=== PATIENT | male | born 1940 | race Asian ===

== ENCOUNTER → 2017-02-19 | Outpatient (CLI) | payer MEDICARE, BC ==
[2005-05-01 10:11] VITALS: TEMP 98.7
[~2017-02-19] MED LIST: ADALAT; ANUSOL HC CREAM30 GM TP; FLEXERIL5 MG PO; FLOMAX; NO HOME MEDICATIONS; PERCOCET 5/321 UDTAB PO
== END ==
LOC: MC.RAD 12:58
DX: N63 Unspecified lump in breast (principal); N60.02 Solitary cyst of left breast

== ENCOUNTER 2017-03-30 11:06 | Emergency (ER) | payer MEDICARE, BC ==
[~2017-03-30] VITALS: Ht 177.8 cm; Wt 75.0 kg
[~2017-03-30 11:06] MED LIST changes: -ANUSOL HC CREAM30 GM TP
[2017-03-30 11:10] VITALS: TEMP 98.9
[2017-03-30] MEDS ORDERED: ANUSOL HC CREAM30 GM TP (11:41)
[2017-03-30 11:50] VITALS: BP 146/78; PULSE 85
== END 2017-03-30 11:57 | disposition home or self-care (01) ==
LOC: COL.ER 11:06
DX: K59.00 Constipation, unspecified (principal); K64.4 Residual hemorrhoidal skin tags

== ENCOUNTER 2021-01-15 19:17 | Emergency (ER) | payer MEDICARE, BC ==
[~2021-01-15] VITALS: Ht 177.8 cm; Wt 79.5 kg
[~2021-01-15 19:17] MED LIST changes: +ANUSOL HC CREAM30 GM TP
[2021-01-15 19:19] VITALS: TEMP 98.9
[2021-01-15 19:31] LABS: HEMATOCRIT 40.2 % (42.0-52.0); HEMOGLOBIN 12.7 g/dl (13.5-18.0); MEAN CELL VOLUME 87 fl (80.0-100.0); MEAN CORPUSCULAR HEMOGLOBIN 28 pg (27.0-31.0); MEAN CORPUSCULAR HGB CONC 32 g/dl (33.0-37.0); MEAN PLATELET VOLUME 9.3 fl (7.4-10.4); PLATELET COUNT 159 K/mm3 (130-400); RED BLOOD COUNT 4.61 M/mm3 (4.20-5.60); REDCELL DISTRIBUTION WIDTH-CV 13.4 % (11.5-14.5)
[2021-01-15 19:42] LABS: ALANINE AMINOTRANSFERASE 16 U/L (4-49); ALBUMIN 4.4 gm/dL (3.5-5.0); ALKALINE PHOSPHATASE 64 U/L (50-136); ANION GAP 10 mmol/L (7-16); AST,SGOT 31 U/L (15-37); BILIRUBIN,TOTAL 0.6 mg/dL (0.0-1.0); BLOOD UREA NITROGEN 24 mg/dL (9-20); CALCIUM 8.5 mg/dL (8.4-10.2); CARBON DIOXIDE 24 mmol/L (22-30); CHLORIDE 104 mmol/L (98-107); CREATININE, serum 1.01 (0.66-1.25); GLUCOSE 109 mg/dL (74-106); POTASSIUM 3.6 mmol/L (3.4-5.0); SODIUM 138 mmol/L (137-145)
[2021-01-15 19:52] LABS: COLLECTION METHOD CLEAN CATCH
[2021-01-15 19:54] LABS: TROPONIN-I < 0.012 ng/mL (0.000-0.035)
[2021-01-15 20:01] LABS: PH 6 (5-8); SQUAMOUS EPITHELIAL 0-2 /hpf; URINE APPEARANCE Clear; URINE BACTERIA None Seen /hpf; URINE BILIRUBIN Negative (NEGATIVE); URINE BLOOD Negative (NEGATIVE); URINE COLOR Yellow; URINE GLUCOSE Negative (NEGATIVE); URINE KETONE Negative (NEGATIVE); URINE LEUKOCYTE ESTERASE Negative (NEGATIVE); URINE NITRATE Negative (NEGATIVE); URINE PROTEIN(semi-quant) Negative (NEGATIVE); URINE RBC 0-2 /hpf; URINE UROBILINOGEN Negative (NEGATIVE)
[2021-01-15 20:59] LABS: LYMPHOCYTE 50 % (20.0-51.0); NEUTROPHILS 48 % (42.0-75.2)
[2021-01-15 21:57] VITALS: BP 120/68; PULSE 88
== END 2021-01-15 22:00 | disposition short-term general hospital (02) ==
LOC: COL.ER 19:17
PROVIDERS: Emergency Medicine
DX: S06.5X0A Traumatic subdural hemorrhage without loss of consciousness, initial encounter (principal); N40.0 Benign prostatic hyperplasia without lower urinary tract symptoms; I10 Essential (primary) hypertension; Z20.822 Contact with and (suspected) exposure to COVID-19; Z88.0 Allergy status to penicillin; W01.10XA Fall on same level from slipping, tripping and stumbling with subsequent striking against unspecified object, initial encounter; Y92.000 Kitchen of unspecified non-institutional (private) residence as the place of occurrence of the external cause
CPT/HCPCS: J1953; J7050

== ENCOUNTER 2021-05-02 08:02 | Emergency (ER) | payer MEDICARE, BC ==
[~2021-05-02] VITALS: Ht 175.3 cm; Wt 70.5 kg
[2021-05-02] MEDS ORDERED: ZEBETA 5MG5 MG PO (09:28)
[2021-05-02] MEDS ORDERED: TAMOXIFEN CITRA20 MG PO (09:29)
[2021-05-02 10:48] LABS: HEMOGLOBIN 12.3 g/dl (13.5-18.0); MEAN CELL VOLUME 85 fl (80.0-100.0); MEAN CORPUSCULAR HEMOGLOBIN 28 pg (27.0-31.0); MEAN CORPUSCULAR HGB CONC 33 g/dl (33.0-37.0); MEAN PLATELET VOLUME 8.3 fl (7.4-10.4); PLATELET COUNT 171 K/mm3 (130-400); RED BLOOD COUNT 4.34 M/mm3 (4.20-5.60); REDCELL DISTRIBUTION WIDTH-CV 13.5 % (11.5-14.5)
[2021-05-02 11:01] LABS: ALBUMIN 4.4 gm/dL (3.5-5.0); BILIRUBIN,TOTAL 0.9 mg/dL (0.0-1.0); CALCIUM 8.6 mg/dL (8.4-10.2); CREATININE, serum 0.88 (0.66-1.25); POTASSIUM 4.4 mmol/L (3.4-5.0); TOTAL PROTEIN 6.8 gm/dL (6.4-8.2)
[2021-05-02 11:02] LABS: C-REACTIVE PROTEIN 0.5 mg/dL (0.0-0.9)
[2021-05-02 11:44] LABS: BAND 11 % (0-10); LYMPHOCYTE 30 % (20.0-51.0); NEUTROPHILS 54 % (42.0-75.2); OVALOCYTES 1+; PLATELET ESTIMATE NORMAL (NORMAL)
[2021-05-02 12:00] VITALS: BP 172/85; PULSE 80; TEMP 98
[2021-05-02] MEDS ORDERED: ATARAX 25MG25 MG/TAB PO (12:04)
== END 2021-05-02 12:20 | disposition home or self-care (01) ==
LOC: COL.ER 08:02
PROVIDERS: Family Medicine
DX: E87.1 Hypo-osmolality and hyponatremia (principal); L29.9 Pruritus, unspecified
CPT/HCPCS: J7030

== ENCOUNTER 2021-06-29 08:08 | Outpatient (CLI) | payer MEDICARE, BC ==
[~2021-06-29] VITALS: Ht 175.3 cm; Wt 71.4 kg
[~2021-06-29 08:08] MED LIST changes: +ATARAX 25MG25 MG/TAB PO; +TAMOXIFEN CITRA20 MG PO; +ZEBETA 5MG5 MG PO
[2021-06-29] MEDS ORDERED: ASPIRIN 81M81 MG/TA2 PO (09:02)
[2021-06-29] MEDS ORDERED: FLORINEF ACETA0.1 MG PO (09:02)
[2021-06-29 09:05] VITALS: BP 179/82; PULSE 73; TEMP 98.2
[2021-06-29 09:05] LABS: HEMATOCRIT 37.9 % (42.0-52.0); HEMOGLOBIN 12.3 g/dl (13.5-18.0); MEAN CELL VOLUME 87 fl (80.0-100.0); MEAN CORPUSCULAR HEMOGLOBIN 28 pg (27.0-31.0); MEAN CORPUSCULAR HGB CONC 33 g/dl (33.0-37.0); MEAN PLATELET VOLUME 8.8 fl (7.4-10.4); PLATELET COUNT 154 K/mm3 (130-400); RED BLOOD COUNT 4.35 M/mm3 (4.20-5.60); REDCELL DISTRIBUTION WIDTH-CV 12.8 % (11.5-14.5)
[2021-06-29 09:12] LABS: INR 1.1 (0.8-3.0); PROTHROMBIN TIME 12.1 SECONDS (9.7-12.8)
[2021-06-29 09:36] LABS: CALCIUM 9.1 mg/dL (8.4-10.2); CREATININE, serum 1.01 mg/dL (0.72-1.25); POTASSIUM 4.1 mmol/L (3.5-4.5)
[2021-06-29 11:26] VITALS: BP 106/25; PULSE 70; TEMP 98.2
[2021-06-29 11:41] VITALS: BP 111/69; PULSE 66; TEMP 98.2
[2021-06-29 11:56] VITALS: BP 119/81; PULSE 67; TEMP 98.2
[2021-06-29 12:11] VITALS: BP 119/79; PULSE 72; TEMP 98.1
[2021-06-29 12:41] VITALS: BP 120/84; PULSE 74; TEMP 98.3
--- NOTE | 2021-06-29 14:50 | NUR ---
PT understands education and verifies follow up appointment. PT has zero complaints and his able to stand and walk to wheel chair without incident. PT is wheeled to 's car and gets in the front seat without incident. PT discharged [id number]
== END 2021-06-29 12:55 | disposition home or self-care (01) ==
LOC: COL.RAD 08:08
PROVIDERS: Internal Medicine Cardiovascular Disease
DX: I35.1 Nonrheumatic aortic (valve) insufficiency (principal); Z20.822 Contact with and (suspected) exposure to COVID-19
CPT/HCPCS: J2704; J7120

== ENCOUNTER 2021-07-11 11:20 | Day surgery (SDC) | payer MEDICARE, BC ==
[2021-07-11] VITALS (10 sets, daily range): BP systolic 128–172; BP diastolic 66–88; PULSE 78–92; TEMP 97.3–98.1
[~2021-07-11] VITALS: Ht 177.8 cm; Wt 72.2 kg
[~2021-07-11 11:20] MED LIST changes: +ASPIRIN 81M81 MG/TA2 PO; +FLORINEF ACETA0.1 MG PO
--- NOTE | 2021-07-12 00:01 | NUR ---
ALERT AND OX4. DENIES SOA, CHEST PAIN OR DIZZY. CBI RUNNING MED, URINE CLEAR WITHOUT CLOTS. PT STATES MILD DISCOMFORT IN BLADDER AREA. TYL AND PM MEDS GIVEN. POC DISCUSSED. CALL LIGHT WITH IN REACH.
[2021-07-12 03:43] VITALS: BP 120/65; PULSE 83; TEMP 98.5
[2021-07-12 07:31] VITALS: BP 163/75; PULSE 92; TEMP 98.3
[2021-07-12 07:49] LABS: HEMATOCRIT 37.1 % (42.0-52.0); HEMOGLOBIN 11.8 g/dl (13.5-18.0); MEAN CELL VOLUME 87 fl (80.0-100.0); MEAN CORPUSCULAR HEMOGLOBIN 28 pg (27.0-31.0); MEAN CORPUSCULAR HGB CONC 32 g/dl (33.0-37.0); PLATELET COUNT 173 K/mm3 (130-400); RED BLOOD COUNT 4.26 M/mm3 (4.20-5.60)
[2021-07-12 08:01] LABS: CALCIUM 8.7 mg/dL (8.4-10.2); CREATININE, serum 0.92 mg/dL (0.72-1.25)
--- NOTE | 2021-07-12 10:00 | NUR ---
Patient alert and oriented, answers questions appropriately. See assessment. Tillman catheter in place, draining clear corral urine. CBI running at slow rate. Patient and with high anxiety, very concerned with rate CBI infusing and color of urine. Educated on CBI and what is expected. Patient or continuously touching and pulling on tillman catheter. Tillman catheter has [place] knot, patient request it to be removed, educated patient on need for [place] knot. Will continue to monitor.
[2021-07-12 12:00] VITALS: BP 104/67; PULSE 81; TEMP 97.8
--- NOTE | 2021-07-12 15:09 | NUR ---
SW met with patient who goes by Rodríguez, and his , Amanda [phone]) at bedside to discuss discharge plan. Patient and his live in a home with no steps. Patient reports he has been fully independent with ADL's and no use of DME's or 02. Patient's assists him with most needs. Patient's PCP is Dr. Mott and he gets his prescriptions from [facility] with no difficulty. Patient states he has an MPOA that lists their son, Shaun Rocha (who is a surgeon in [facility]) but they will have to bring us a copy of it for his chart. Patient and requested a list of assisted living facilities in the area as well as a list of family practioners and this worker provided them and answered their many general questions. SW will continue to follow for discharge needs. D/C Plan: anticipate home with no needs
[2021-07-12 15:26] VITALS: BP 136/70; PULSE 83; TEMP 98.1
[2021-07-12 19:36] VITALS: BP 119/60; PULSE 83; TEMP 98.4
[2021-07-13 00:11] VITALS: BP 138/71; PULSE 83; TEMP 97.8
--- NOTE | 2021-07-13 02:01 | NUR ---
PT RESTING QUIETLY IN BED. CBI INFUSING @ A SLOW RATE, URINE IS A CLEAR PEACH COLOR. PT HAD REFUSED MEDICATIONS LAST NIGHT, STATED THAT HE WOULD WAIT UNTIL MORNING TO TALK TO DR. MOREL. ATTEMPTED TO EXPLAIN TO PT WHAT MEDICATIONS WERE USED FOR BUT CONTINUED TO REFUSE. PT STATED THAT HE BELIEVED HIS IV IN RIGHT HAND WAS BAD ET NEEDED TO BE REMOVED R/T A SCANT AMOUNT OF BLOOD SEEN IN J-LOOP. IV FLUSHED EASILY WITHOUT PAIN, NO REDNESS OR EDEMA SEEN. EXPLAINED TO PT THAT IV SITE WAS WORKING WELL, PT VERBALIZED UNDERSTANDING. RESPIRATIONS UNLABORED @ THIS TIME, CALL LIGHT WITHIN REACH.
[2021-07-13 04:11] VITALS: BP 145/68; PULSE 77; TEMP 97.8
--- NOTE | 2021-07-13 05:30 | NUR ---
PT IS IN BED. SALAS CATHETER HAS BEEN PRIMED ET PULLED. PT HAS URINATED 150ML KELLY RED URINE INTO URINAL. PT DENIES ANY PAIN, PERFORMS JASPAL CARE INDEPENDENTLY. PT GIVEN FRESH ICE WATER. DENIES OTHER NEEDS. RESPIRATIONS UNLABORED. CALL LIGHT WITHIN REACH.
--- NOTE | 2021-07-13 07:25 | NUR ---
Rcvd report from CARMELA Ayala. Pt started 6 cup routine this morning. 2 cups completed. 4 more cups placed in the window in bathroom.
[2021-07-13 07:28] VITALS: BP 121/62; PULSE 92; TEMP 98.4
--- NOTE | 2021-07-13 08:45 | NUR ---
Pt has been recieving tamoxifen daily. This is a hazardous drug that requires the use of PPE for contact with stool for 1 month.
[2021-07-13 11:11] VITALS: BP 105/57; PULSE 79; TEMP 98.4
--- NOTE | 2021-07-13 13:14 | NUR ---
First visit from the process improvement analyst. No needs right now.
[2021-07-13 16:00] VITALS: BP 132/77; PULSE 87; TEMP 99
== END 2021-07-13 16:55 | disposition home or self-care (01) ==
LOC: SDCO 11:20 → SURG 17:23 → SDCO 07-13 16:55
PROVIDERS: Urology
DX: N40.1 Benign prostatic hyperplasia with lower urinary tract symptoms (principal); R35.0 Frequency of micturition; R39.15 Urgency of urination; R35.1 Nocturia; R39.14 Feeling of incomplete bladder emptying; K21.9 Gastro-esophageal reflux disease without esophagitis; I10 Essential (primary) hypertension; E78.5 Hyperlipidemia, unspecified; M19.90 Unspecified osteoarthritis, unspecified site; Z79.82 Long term (current) use of aspirin; Z79.899 Other long term (current) drug therapy; Z85.3 Personal history of malignant neoplasm of breast
CPT/HCPCS: OP; J1100; J2405; J2704; J3010; J7030

== ENCOUNTER → 2022-05-07 | Outpatient (CLI) | payer MEDICARE, BC ==
[~2022-05-07] MED LIST changes: +NATURAL IRON65 MG PO; +VITAMINC250CH PO
[2022-05-07 08:10] LABS: CALCIUM 8.6 mg/dL (8.4-10.2); CREATININE, serum 1.07 mg/dL (0.72-1.25); POTASSIUM 4.4 mmol/L (3.5-4.5)
== END ==
LOC: COL.LAB 06:59 → COL.RAD 06:59
PROVIDERS: Internal Medicine Cardiovascular Disease
DX: I51.7 Cardiomegaly (principal); I77.810 Thoracic aortic ectasia; I35.1 Nonrheumatic aortic (valve) insufficiency; N32.89 Other specified disorders of bladder; R16.1 Splenomegaly, not elsewhere classified
CPT/HCPCS: Q9967

== ENCOUNTER 2022-05-17 06:58 | Outpatient (CLI) | payer MEDICARE, BC ==
[~2022-05-17] VITALS: Ht 177.8 cm; Wt 70.6 kg
[2022-05-17 07:54] VITALS: BP 167/67; PULSE 68; TEMP 97.6
[2022-05-17 09:40] VITALS: BP 120/63; PULSE 71; TEMP 98.2
--- NOTE | 2022-05-17 09:40 | NUR ---
PT TO BAY 2 PER CART FROM PACU. REPORT RECEIVED. VS OBTAINED. CALL LIGHT WITHIN REACH. DRESSING C/D/I.
[2022-05-17 09:55] VITALS: BP 128/58; PULSE 75
--- NOTE | 2022-05-17 09:55 | NUR ---
PT TOLERATING WATER, MUFFIN, AND CRACKERS WITHOUT DIFFICULTY.
[2022-05-17 09:58] LABS: MEAN CELL VOLUME 83 fl (80.0-100.0); MEAN CORPUSCULAR HEMOGLOBIN 26 pg (27-31); MEAN CORPUSCULAR HGB CONC 32 g/dl (33.0-37.0); MEAN PLATELET VOLUME 8.7 fl (7.4-10.4); PLATELET COUNT 123 K/mm3 (130-400); REDCELL DISTRIBUTION WIDTH-CV 14.7 % (11.5-14.5)
[2022-05-17 10:03] LABS: HEMATOCRIT 31.7 % (42.0-52.0)
[2022-05-17 10:10] VITALS: BP 130/55; PULSE 77
[2022-05-17 10:25] LABS: BAND 5 % (0-10); EOSINOPHIL 1 % (0-4); NEUTROPHILS 48 % (42.0-75.2); OVALOCYTES 2+; PLATELET ESTIMATE DECREASED (NORMAL); SCHISTOCYTES 1+
[2022-05-17 10:26] LABS: MICROCYTOSIS 1+
[2022-05-17 10:27] LABS: LYMPHOCYTE 41 % (20.0-51.0)
--- NOTE | 2022-05-17 10:45 | NUR ---
1025-IV DC'D. 1035-DISCHARGE EDUCATION COMPLETED WITH PT AND HIS . VERBALIZED UNDERSTANDING OF HOME AND FOLLOW UP CARE. ALL QUESTIONS ANSWERED. DISCHARGE PAPERWORK GIVEN TO PT. 1045-PT OFF UNIT PER WHEELCHAIR. PT DISCHARGED TO HOME WITH PER PERSONAL VEHICLE.
== END 2022-05-17 10:45 | disposition home or self-care (01) ==
LOC: SDCO 06:58
PROVIDERS: Pathology Anatomic Pathology & Clinical Pathology
DX: D64.9 Anemia, unspecified (principal); Z85.3 Personal history of malignant neoplasm of breast; D69.6 Thrombocytopenia, unspecified; R16.1 Splenomegaly, not elsewhere classified; R63.4 Abnormal weight loss
CPT/HCPCS: J7120

== ENCOUNTER 2022-08-17 23:18 | Inpatient (IN) | payer MEDICARE, BC ==
[~2022-08-17] VITALS: Ht 177.8 cm; Wt 74.2 kg
[2022-08-18] VITALS (1117 sets, daily range): BP systolic 78–170; BP diastolic 51–82; PULSE 60–170; TEMP 97.5–98.1; O2SAT 71–100
[2022-08-18 00:07] LABS: HEMOGLOBIN 10.8 g/dl (13.5-18.0); MEAN CELL VOLUME 82 fl (80.0-100.0); MEAN CORPUSCULAR HEMOGLOBIN 26 pg (27-31); MEAN CORPUSCULAR HGB CONC 32 g/dl (33.0-37.0); PLATELET COUNT 120 K/mm3 (130-400); RED BLOOD COUNT 4.12 M/mm3 (4.20-5.60); REDCELL DISTRIBUTION WIDTH-CV 15.8 % (11.5-14.5)
[2022-08-18 00:12] LABS: HEMATOCRIT 33.6 % (42.0-52.0)
[2022-08-18 00:34] LABS: BAND 13 % (0-10); EOSINOPHIL 1 % (0-4); LYMPHOCYTE 8 % (20.0-51.0); NEUTROPHILS 73 % (42.0-75.2)
[2022-08-18 00:35] LABS: PLATELET ESTIMATE NORMAL (NORMAL)
[2022-08-18 00:37] LABS: ALBUMIN 3.8 gm/dL (3.4-4.8); BILIRUBIN,TOTAL 1.2 mg/dL (0.2-1.2); C-REACTIVE PROTEIN 3.09 mg/dL (0.00-0.50); CALCIUM 8.6 mg/dL (8.4-10.2); CREATININE, serum 1.46 mg/dL (0.72-1.25); POTASSIUM 3.9 mmol/L (3.5-4.5); TOTAL PROTEIN 5.8 gm/dL (6.2-8.1)
[2022-08-18 01:25] LABS: INR 1.3 (0.8-3.0); PROTHROMBIN TIME 14.5 SECONDS (9.7-12.8)
[2022-08-18 01:28] LABS: PARTIAL THROMBOPLASTIN TIME 33.7 SECONDS (26.0-37.0)
--- NOTE | 2022-08-18 02:11 | NUR ---
Received report from ED nurse, Michelle.
[2022-08-18] MEDS ORDERED: BARACLUDE0.5 MG PO (02:17)
[2022-08-18] MEDS ORDERED: ZYLOPRIM 300MG300 MG PO (02:17)
[2022-08-18] MEDS ORDERED: ZOFRAN8 MG PO (02:18)
[2022-08-18] MEDS ORDERED: VALTREX 50500 MG/TAB PO (02:18)
[2022-08-18] MEDS ORDERED: PROTONIX 40MG T40 MG PO (02:19)
--- NOTE | 2022-08-18 02:25 | NUR ---
Patient arrives to ICU room 5 via ED stretcher. Patient transferred to ICU bed via drawsheet. HR upon arrival 130s, AFIB; all other vitals within normal limits. Continues to receive heparin drip, see IV drip titrations. Patient also receiving remainder of 500mL NS bolus as ordered in ED. Dr. Avery aware of patient's arrival. Orders received to initiate levophed with SBP goal of 95 before initiating amiodarone drip for HR control.
[2022-08-18 04:42] LABS: COLLECTION METHOD CLEAN CATCH
[2022-08-18 04:53] LABS: SQUAMOUS EPITHELIAL None Seen /hpf (0-10); URINE BACTERIA None Seen /hpf (NONE SEEN); URINE RBC 0-2 /hpf (0-2)
[2022-08-18 04:57] LABS: URINE APPEARANCE Clear (CLEAR/HAZY); URINE BLOOD TRACE-INTACT (NEGATIVE); URINE COLOR Yellow (YELLOW); URINE GLUCOSE Negative (NEGATIVE); URINE KETONE TRACE (NEGATIVE); URINE NITRATE Negative (NEGATIVE); URINE PROTEIN(semi-quant) Negative (NEGATIVE); URINE UROBILINOGEN 0.2 E.U/dL (0.2-1.0)
[2022-08-18 07:39] LABS: HEMOGLOBIN 10.7 g/dl (13.5-18.0); MEAN CELL VOLUME 82 fl (80.0-100.0); MEAN CORPUSCULAR HEMOGLOBIN 27 pg (27-31); MEAN CORPUSCULAR HGB CONC 32 g/dl (33.0-37.0); MEAN PLATELET VOLUME 9.2 fl (7.4-10.4); PLATELET COUNT 111 K/mm3 (130-400); RED BLOOD COUNT 4.04 M/mm3 (4.20-5.60); REDCELL DISTRIBUTION WIDTH-CV 15.9 % (11.5-14.5)
[2022-08-18 07:56] LABS: CALCIUM 7.7 mg/dL (8.4-10.2); CREATININE, serum 1.23 mg/dL (0.72-1.25); POTASSIUM 3.8 mmol/L (3.5-4.5)
[2022-08-18 09:21] LABS: BAND 9 % (0-10); EOSINOPHIL 1 % (0-4); LYMPHOCYTE 1 % (20.0-51.0); METAMYELOCYTE 1 % (0-0); NEUTROPHILS 85 % (42.0-75.2)
[2022-08-18 09:22] LABS: BURR CELLS 1+; HYPOCHROMIA 2+; OVALOCYTES 2+; PLATELET ESTIMATE DECREASED (NORMAL); POIKILOCYTOSIS 1+
--- NOTE | 2022-08-18 10:00 | NUR ---
Discussed in detail with patient and about plan of care. Will be transitioning from IV to po Amiodarone now that patient is in sinus rhythm. Patient is alert and oriented and denies any concerns at this time.
--- NOTE | 2022-08-18 10:19 | NUR ---
HEPARIN DRIP DISCONTINUED PER CARDIOLOGY AND HOSPITALIST.
--- NOTE | 2022-08-18 13:22 | NUR ---
stopped by but nothing needed at this time.
--- NOTE | 2022-08-18 14:15 | NUR ---
SW met with patient to complete intake. Patient provides that he lives with his Amanda [phone]. Patient does not utilize DME, is independent with ADLs, and does not utilize home health services. PCP is Dr. Mott, and pharmacy is [facility]. is appointed as DPOA of . Patient plans to return to his home upon DC. SW will continue to follow. DC plan: home
[2022-08-19] VITALS (720 sets, daily range): BP systolic 91–122; BP diastolic 53–63; PULSE 64–92; TEMP 97.8–98.6; O2SAT 68–99
--- NOTE | 2022-08-19 04:34 | NUR ---
Patient has had an uneventful night. Sleeping quietly in bed. Vitals within normal limits. Denies any pain or discomfort. Levophed has remained on standby throughout shift. MAPs sustaining 65 or better. SR on monitor.
[2022-08-19 06:16] LABS: MEAN CELL VOLUME 84 fl (80.0-100.0); MEAN CORPUSCULAR HGB CONC 32 g/dl (33.0-37.0); MEAN PLATELET VOLUME 9.8 fl (7.4-10.4); PLATELET COUNT 107 K/mm3 (130-400); RED BLOOD COUNT 3.55 M/mm3 (4.20-5.60); REDCELL DISTRIBUTION WIDTH-CV 15.9 % (11.5-14.5)
[2022-08-19 06:21] LABS: HEMOGLOBIN 9.4 g/dl (13.5-18.0); MEAN CORPUSCULAR HEMOGLOBIN 26 pg (27-31)
[2022-08-19 06:22] LABS: HEMATOCRIT 29.7 % (42.0-52.0)
[2022-08-19 06:31] LABS: ALBUMIN 3.1 gm/dL (3.4-4.8); CALCIUM 7.3 mg/dL (8.4-10.2); CREATININE, serum 1.23 mg/dL (0.72-1.25); PHOSPHOROUS 2.7 mg/dL (2.3-4.7); POTASSIUM 3.9 mmol/L (3.5-4.5)
[2022-08-19 08:33] LABS: BAND 10 % (0-10); LYMPHOCYTE 4 % (20.0-51.0); METAMYELOCYTE 1 % (0-0); NEUTROPHILS 85 % (42.0-75.2); PLATELET ESTIMATE DECREASED (NORMAL)
[2022-08-19 08:34] LABS: BURR CELLS 1+; OVALOCYTES 1+
[2022-08-19 08:35] LABS: ANISOCYTOSIS 1+; SCHISTOCYTES 1+
--- NOTE | 2022-08-19 09:00 | NUR ---
Patient rash which was present upon admission is still present on trunk and upper extremities and upper thighs. Rash is reddened and splotchy but does not appear raised. Patient denies any other symptoms associated with this rash. Hospitalist notified; no further orders at this time.
--- NOTE | 2022-08-19 12:10 | NUR ---
Patient transfered upstairs via wheelchair. Alert and oriented and in no distress upon transfer.
[2022-08-20 00:29] VITALS: BP 118/61; PULSE 84; TEMP 97.8
[2022-08-20 04:11] VITALS: BP 129/64; PULSE 84; TEMP 98.5
[2022-08-20 08:07] VITALS: BP 108/54; PULSE 83; TEMP 98.8
--- NOTE | 2022-08-20 09:22 | NUR ---
Pt laying in bed. Morning medications adminsitered per eMAR. Unable to administer K+ per protocol as pt refused labs this morning. Shift assessment completed. VSS. Crackles heard SWAPNA upon lung auscultation with O2 sat at 93% on RA. Telemetry remains on with NSR. LR infusing at 60mL/hr in R AC intact. INT in R wrist intact. LUE remains restricted. No further request at this time. Call light within reach. Fall precautions remain in place.
[2022-08-20 11:21] VITALS: BP 110/55; PULSE 77; TEMP 98.5
[2022-08-20 16:00] VITALS: BP 116/59; PULSE 80; TEMP 98.4
[2022-08-20 17:10] LABS: HEMOGLOBIN 10.8 g/dl (13.5-18.0); MEAN CELL VOLUME 82 fl (80.0-100.0); MEAN CORPUSCULAR HEMOGLOBIN 27 pg (27-31); MEAN CORPUSCULAR HGB CONC 32 g/dl (33.0-37.0); MEAN PLATELET VOLUME 9.4 fl (7.4-10.4); PLATELET COUNT 155 K/mm3 (130-400); RED BLOOD COUNT 4.05 M/mm3 (4.20-5.60); REDCELL DISTRIBUTION WIDTH-CV 16.1 % (11.5-14.5)
[2022-08-20 17:11] LABS: HEMATOCRIT 33.3 % (42.0-52.0)
[2022-08-20 17:21] LABS: ALBUMIN 2.8 gm/dL (3.4-4.8); C-REACTIVE PROTEIN 5.1 mg/dL (0.00-0.50); CALCIUM 7.5 mg/dL (8.4-10.2); PHOSPHOROUS 1.7 mg/dL (2.3-4.7); POTASSIUM 3.5 mmol/L (3.5-4.5)
[2022-08-20 17:40] LABS: ANISOCYTOSIS 1+; BAND 34 % (0-10); EOSINOPHIL 1 % (0-4); LYMPHOCYTE 1 % (20.0-51.0); METAMYELOCYTE 2 % (0-0); MICROCYTOSIS 1+; NEUTROPHILS 61 % (42.0-75.2); PLATELET ESTIMATE NORMAL (NORMAL)
--- NOTE | 2022-08-20 19:31 | NUR ---
PATIENT LAYING IN BED WITH EYES CLOSED AND SNORING. PATIENT HAS CALL LIGHT ON LAP. PATIENT SHOWS NO SIGNS OF NEEDS OR CONCERNS AT THIS TIME.
[2022-08-20 20:21] VITALS: BP 113/59; PULSE 81; TEMP 97.9
[2022-08-21 00:35] VITALS: BP 122/60; PULSE 80; TEMP 98.3
[2022-08-21 04:59] VITALS: BP 114/61; PULSE 79; TEMP 97.9
[2022-08-21 06:42] LABS: MEAN CELL VOLUME 82 fl (80.0-100.0); MEAN CORPUSCULAR HGB CONC 33 g/dl (33.0-37.0); MEAN PLATELET VOLUME 9.8 fl (7.4-10.4); PLATELET COUNT 129 K/mm3 (130-400); RED BLOOD COUNT 3.69 M/mm3 (4.20-5.60); REDCELL DISTRIBUTION WIDTH-CV 15.9 % (11.5-14.5)
[2022-08-21 06:50] LABS: ALBUMIN 2.7 gm/dL (3.4-4.8); CALCIUM 7.4 mg/dL (8.4-10.2); CREATININE, serum 0.94 mg/dL (0.72-1.25); HEMATOCRIT 30.1 % (42.0-52.0); HEMOGLOBIN 9.9 g/dl (13.5-18.0); MEAN CORPUSCULAR HEMOGLOBIN 27 pg (27-31); PHOSPHOROUS 1.6 mg/dL (2.3-4.7); POTASSIUM 3.6 mmol/L (3.5-4.5)
[2022-08-21 07:52] LABS: BAND 14 % (0-10); EOSINOPHIL 4 % (0-4); LYMPHOCYTE 1 % (20.0-51.0); NEUTROPHILS 79 % (42.0-75.2); PLATELET ESTIMATE DECREASED (NORMAL)
[2022-08-21 07:53] LABS: ANISOCYTOSIS 1+; OVALOCYTES 1+
[2022-08-21 07:54] LABS: BURR CELLS 1+
[2022-08-21 08:40] VITALS: BP 112/57; PULSE 79; TEMP 98.2
--- NOTE | 2022-08-21 08:59 | NUR ---
Pt awake and laying in bed. Morning medications administered per eMAR. Shift assessment completed. VSS. Telemetry remains on with NSR. IV in R wrist infiltrated and removed by this OPERATIONS MANAGEMENT TRAINEE with catheter tip intact. LUE remains restricted. Pt remains with generalized rash. No further request at this time. Call light within reach. Fall precautions remain in place. remains at bedside.
[2022-08-21] MEDS ORDERED: DOXYCYCLINE 10100 MG PO (09:11)
[2022-08-21] MEDS ORDERED: CEFTIN500 MG PO (09:11)
[2022-08-21] MEDS ORDERED: CORDARONE200 MG/TAB PO (09:13)
[2022-08-21] MEDS ORDERED: SODIUM CHLORIDE1 GM PO (09:23)
[2022-08-21] MEDS ORDERED: ASPIRIN 81M81 MG/TA2 PO ×2 (09:34)
--- NOTE | 2022-08-21 11:10 | NUR ---
The patient is to discharge back home with his today, 08/21. MICKEY met with the patient and his , Amanda. SW presented and read the IM form outloud to Amanda. Amanda verbalized understanding and agreement to discharge today. She signed the form and MICKEY provided her with a copy. No additional needs at this time.
--- NOTE | 2022-08-21 11:31 | NUR ---
This EMS DIRECTOR provided pt discharge instructions. Spent approx. 30 minutes clarifying pt discharge instructions to both pt and spouse. All questions answered.
--- NOTE | 2022-08-21 11:40 | NUR ---
Pt escorted out of facility by spouse and YSABEL Ball via wheelchair.
== END 2022-08-21 11:39 | disposition home or self-care (01) | DRG 871 ==
LOC: COL.ER 23:18 → ICU 08-18 01:32 → MEDICAL 08-18 01:32 → ICU 08-19 08:42 → MEDICAL 08-19 12:18
PROVIDERS: Emergency Medicine; ADMIT Internal Medicine
DX: A41.9 Sepsis, unspecified organism (principal); J18.9 Pneumonia, unspecified organism; R65.21 Severe sepsis with septic shock; E87.1 Hypo-osmolality and hyponatremia; N17.9 Acute kidney failure, unspecified; C83.00 Small cell B-cell lymphoma, unspecified site; E87.20 Acidosis, unspecified; I48.91 Unspecified atrial fibrillation; I10 Essential (primary) hypertension; I35.1 Nonrheumatic aortic (valve) insufficiency; D69.6 Thrombocytopenia, unspecified; D64.9 Anemia, unspecified; Z85.3 Personal history of malignant neoplasm of breast; Z90.10 Acquired absence of unspecified breast and nipple; Z79.899 Other long term (current) drug therapy
CPT/HCPCS: J0282; J0692; J1644; J2405; J2920; J7030; J7040; J7060; J7120

== ENCOUNTER 2023-10-06 08:47 | Emergency (ER) | payer MEDICARE, BC ==
[~2023-10-06] VITALS: Ht 175.3 cm; Wt 72.7 kg
[~2023-10-06 08:47] MED LIST changes: +BARACLUDE0.5 MG PO; +CEFTIN500 MG PO; +CORDARONE200 MG/TAB PO; +DOXYCYCLINE 10100 MG PO; +PACERONE200 MG PO; +PRILOSEC 20MG20 MG PO; +PROTONIX 40MG T40 MG PO; +SODIUM CHLORIDE1 GM PO; +VALTREX 50500 MG/TAB PO; +ZOFRAN8 MG PO; +ZYLOPRIM 300MG300 MG PO
[2023-10-06 08:55] VITALS: TEMP 98.2
[2023-10-06 09:32] LABS: HEMATOCRIT 38.6 % (42.0-52.0); HEMOGLOBIN 12.2 g/dl (13.5-18.0); MEAN CELL VOLUME 91 fl (80.0-100.0); MEAN CORPUSCULAR HEMOGLOBIN 29 pg (27-31); MEAN CORPUSCULAR HGB CONC 32 g/dl (33.0-37.0); MEAN PLATELET VOLUME 10.3 fl (7.4-10.4); PLATELET COUNT 145 K/mm3 (130-400); RED BLOOD COUNT 4.25 M/mm3 (4.20-5.60); REDCELL DISTRIBUTION WIDTH-CV 13.9 % (11.5-14.5)
[2023-10-06 09:45] LABS: ALBUMIN 4.5 gm/dL (3.4-4.8); BILIRUBIN,TOTAL 0.8 mg/dL (0.2-1.2); CALCIUM 9.2 mg/dL (8.4-10.2); CREATININE, serum 1.31 mg/dL (0.72-1.25); POTASSIUM 3.9 mmol/L (3.5-4.5); TOTAL PROTEIN 6.8 gm/dL (6.2-8.1)
[2023-10-06 10:25] LABS: EOSINOPHIL 4 % (0-4); LYMPHOCYTE 21 % (20.0-51.0); NEUTROPHILS 66 % (42.0-75.2); NUCLEATED RED BLOOD CELL 1 (0-6); PLATELET ESTIMATE NORMAL (NORMAL)
[2023-10-06 10:26] LABS: HYPOCHROMIA 1+; MICROCYTOSIS 1+
[2023-10-06] MEDS ORDERED: COLACE 100100 MG/CAP PO (10:34)
[2023-10-06] MEDS ORDERED: ANUSOL-HC SUPPO25 MG RC (10:34)
[2023-10-06 10:38] VITALS: BP 166/73; PULSE 68
== END 2023-10-06 10:47 | disposition home or self-care (01) ==
LOC: COL.ER 08:47
PROVIDERS: Personal Emergency Response Attendant
DX: K62.5 Hemorrhage of anus and rectum (principal); K64.8 Other hemorrhoids; R79.89 Other specified abnormal findings of blood chemistry